=== PATIENT | female | born 1985 | race Caucasian/White ===

== ENCOUNTER 2017-07-23 22:07 | Inpatient (IN) ==
[2017-07-23] MEDS ORDERED: 0.9 % Sodium Chloride 1,000 ML IVC ONE (22:35)
--- NOTE | 2017-07-23 22:50 | Emergency Department Note ---
Disposition Clinical Impression: Pyelonephritis, Indwelling Bautista catheter present, S/P lumbar spinal fusion Disposition: Admitted As Inpatient Condition: Undetermined Time of Disposition: 23:39 General Adult HPI - General Chief complaint: ED Weakness Stated complaint: MULTIPLE COMPLAINTS Time Seen by Provider: 07/23/17 22:12 Source: patient Mode of arrival: private vehicle Limitations: no limitations Nursing Notes Reviewed: Yes Vital Signs Reviewed: Yes - History of Present Illness HPI Narrative: 32-year-old female with history of chronic back pain and subsequent weakness and numbness associated with it over the course of the past 2 months arrives to [facility] emergency department status post spinal fusion of L5-S1 by Dr. Thai Wagner in [facility]. The patient states the surgery occurred 5 days ago. She was recently discharged from the hospital status post surgery 2 days ago. The patient states that since then she has continued to experience chills, weakness. The patient states she has baseline numbness and tingling of her saddle region as well as left lower extremity. The patient states this is not new. The patient states as though she has been experiencing some suprapubic tenderness and pain as well as chills and generalized weakness. The patient denies any other complaints at this time that are new. Onset (ago): day(s) (2) Pain Severity: moderate Pain Scale: 7 Quality: aching Consistency: constant Improves with: nothing Worsens with: nothing Associated symptoms: Reports: fever/chills, malaise, nausea/vomiting, weakness Treatments Prior to Arrival: none - Related Data Home Medications Medication Instructions Recorded Confirmed Albuterol Sulfate [Ventolin Hfa] 2 puff IH Q4H PRN 09/12/16 07/24/17 Amitriptyline [Elavil] 25 mg PO HS 09/12/16 07/24/17 Cyanocobalamin (Vitamin B-12) 100 mcg PO DAILY 09/12/16 07/24/17 [Vitamin B-12] Dicyclomine [Bentyl] 10 mg PO QID 09/12/16 07/24/17 Ergocalciferol (VITAMIN D2) 50,000 unit PO 2XW MDD mon,wed 09/12/16 07/24/17 [Vitamin D2] Fexofenadine HCl 180 mg PO DAILY 09/12/16 07/24/17 Flunisolide [Aerospan] 1 - 2 puff IH BID 09/12/16 07/24/17 Folic Acid 1 mg PO DAILY 09/12/16 07/24/17 Gabapentin 800 mg PO TID 09/12/16 07/24/17 Ipratropium/Albuterol Neb [Duoneb] 3 ml IH Q6HR PRN 09/12/16 07/24/17 L. Acidophilus/Pectin, Placer 1 cap PO DAILY 09/12/16 07/24/17 [Acidophilus Probiotic Capsule] Medroxyprogesterone Acetate 150 mg IM Q3M 09/12/16 07/24/17 [Depo-Provera] Methocarbamol [Robaxin] 500 mg PO Q12H PRN 09/12/16 07/24/17 Previous Rx's Medication Instructions Recorded Docusate [Colace] 100 mg PO BID #30 capsule 09/12/16 OxyCODONE/APAP 5/325 [Percocet 1 each PO Q4HR PRN #30 tablet 09/12/16 5/325 MG] methylPREDNISolone [Medrol] 1 each PO DAILY #1 pack 05/31/17 Allergies Allergy/AdvReac Type Severity Reaction Status Date / Time No Known Allergies Allergy Verified 07/23/17 22:12 All systems ED: reviewed and negative except as stated. Constitutional: Reports: chills, weakness. Denies: fever Eyes: Denies: vision change ENT ED: Denies: dental pain, congestion, dysphagia Cardiovascular: Denies: chest pain, dyspnea on exertion Respiratory: Denies: cough, dyspnea Gastrointestinal: Reports: abdominal pain (Suprapubic), nausea, constipation. Denies: vomiting, diarrhea Genitourinary: Denies: urgency, dysuria Musculoskeletal: Reports: back pain, myalgia. Denies: neck pain Integumentary: Denies: rash Neurological: Reports: weakness, numbness, paresthesias, abnormal gait. Denies : headache, confusion, vertigo Past Medical History - Past Medical History Attestation: Yes The following information was validated with the patient. Source: patient Medical history: Reports: asthma, migraine Surgical history: Reports: appendectomy, , cholecystectomy Psychiatric history: Reports: no psych history - Social History Smoking Status: Current every day smoker Smokeless Tobacco Status: No Alcohol use: Reports: none Drug use: Reports: none Physical Exam - General Limitations: no limitations General appearance: alert, in no apparent distress - Head Head exam: atraumatic, normocephalic, normal inspection - Eye Eye exam: Present: normal appearance, PERRL, EOMI - ENT ENT exam: normal exam, normal oropharynx, mucous membranes moist - Neck Neck exam: Present: normal inspection, full ROM, trachea midline - Chest Chest inspection: Present: normal inspection, symmetric chest wall rise - Respiratory Respiratory exam: Present: normal lung sounds bilaterally - Cardiovascular Cardiovascular exam: Present: normal rhythm, tachycardia, normal heart sounds - Abdominal Exam Abdominal exam: Present: soft, Non-Tender. Absent: tenderness, distention, guarding, rebound, rigidity - Extremities Exam Extremities exam: Present: normal inspection, full ROM. Absent: tenderness, pedal edema - Back Exam Back exam: Present: full ROM, other (surgical incision intact without erythema, discharge.) - Neurological Exam Neurological exam: Present: alert, oriented X3, CN II-XII intact - Expanded Neurological Exam Patient oriented to: Present: person, place, time Speech: Present: fluid speech Cranial nerves: EOM function (II, III, IV, ): Normal, facial sensation (V): Normal, facial palsy (VII): Normal Cerebellar function: wide-based gait Motor strength - LUE: 4/5 Motor strength - RUE: 4/5 Motor strength - LLE: 3/5 Motor strength - RLE: 4/5 Sensory exam upper extremity: light touch: Normal Sensory exam lower extremity: light touch: Abnormal Left Coma Scale Eye Opening: Spontaneous Coma Scale Motor Response: Obeys Commands Coma Scale Verbal Response: Oriented Coma Scale Total: 15 - Skin Skin exam: Present: warm, dry, intact, normal color Course Vital Signs Temperature 97.4 F L 07/23/17 22:09 Pulse Rate 129 07/23/17 22:09 Respiratory Rate 16 07/23/17 22:09 Blood Pressure 128/83 07/23/17 22:09 O2 Sat by Pulse Oximetry 97 07/23/17 22:09 Temperature 98 F 07/24/17 04:04 Pulse Rate 109 07/24/17 04:04 Respiratory Rate 14 07/24/17 04:04 Blood Pressure 99/58 07/24/17 04:04 O2 Sat by Pulse Oximetry 99 07/24/17 04:04 Oxygen Delivery Oxygen Delivery Room Air Medical Decision Making - MDM Narrative Medical decision making narrative: Patient's workup here in the emergency department demonstrates findings consistent with a urinary tract infection. Patient is tachycardic and afebrile. Given the history of indwelling catheter is replaced combined with her UTI and likely pyelonephritis, we will admit the patient to hospitalist with IV antibiotics. Patient made aware and agrees with plan. I do not feel as though this is associated with her back and she is expressing no new back pain, no new numbness, tingling, no new weakness. The patient is resting comfortably with an incision site in her back that is well-appearing. Accepted by Dr. Foster. - Lab Data Lab results reviewed: Yes I reviewed the patient's lab results. Result diagrams: 07/24/17 04:47 07/23/17 22:43 Lab Results 07/23/17 07/23/17 07/23/17 Range/Units 22:43 22:43 22:43 WBC 11.3 H (4.3-11.1) K/mcL RBC 3.92 (3.82-4.97) M/mcL Hgb 12.5 (11.5-15.4) g/dL Hct 37.3 (35.3-44.9) % MCV 95.2 (83.0-100.0) fL MCH 31.9 (28.0-33.3) pg MCHC 33.5 (31.6-35.5) g/dL RDW 14.1 (11.5-14.5) % Plt Count 487 H (140-400) K/mcL MPV 8.7 L (9.4-12.4) fL Immature Gran % 0.4 (0-4) % Seg Neutrophils % 70.2 % Lymphocytes % 14.9 % Monocytes % 10.0 % Eosinophils % 4.0 % Basophils % 0.5 % Neutrophils # 7.9 (1.6-8.9) K/mcL Lymphocytes # 1.7 (0.6-4.6) K/mcL Monocytes # 1.1 (0.0-1.3) K/mcL Eosinophils # 0.5 (0.0-0.6) K/mcL Basophils # 0.1 (0.0-0.2) K/mcL Immature Plt Fraction 1.5 (1.1-6.1) % Sodium 141 (136-145) mEq/L Potassium 4.1 (3.5-4.5) mEq/L Chloride 109 (98-109) mEq/L Carbon Dioxide 22 (19-29) mEq/L BUN 6 L (7-20) mg/dL Creatinine 0.78 (0.57-1.11) mg/dL Est GFR ( Amer) > 60 (> 60) Est GFR (Non-Af Amer) > 60 (> 60) BUN/Creatinine Ratio 8 (6-26) Glucose 107 H (70-99) mg/dL Calculated Osmolality 290 (280-300) Lactic Acid 1.5 (0.5-2.2) mmol/L Calcium 9.3 (8.6-10.8) mg/dL Total Bilirubin 0.2 (0.2-1.2) mg/dL AST 19 (5-34) Units/L ALT 33 (0-55) Units/L Alkaline Phosphatase 70 (38-126) Units/L Serum Total Protein 7.2 (6.0-8.3) g/dL Albumin 2.9 L (3.5-5.0) g/dL Globulin 4.3 H (2.4-3.5) g/dL Albumin/Globulin Ratio 0.7 L (1.1-2.2) Urine Color (Yellow) Urine Clarity (Clear) Urine pH (5.0-8.0) pH Units Ur Specific [employer] [place] (1.010-1.025) Urine Protein (Neg-Trace) mg/dL Urine Glucose (UA) (Normal) mg/dL Urine Ketones (Negative) mg/dL Urine Blood (Negative) Urine Nitrite (Negative) Urine Bilirubin (Negative) Urine Urobilinogen (Normal) mg/dL Ur Leukocyte Esterase (Negative) Urine Microscopic RBC (0-3) per hpf Urine Microscopic WBC (0-3) per hpf Ur Squamous Epith Cells (None-Few) per lpf Urine Bacteria (None-Few) per hpf Hyaline Casts (None-Few) per lpf Ur Culture Indicated? (NO) Urine Test (Negative) 07/23/17 07/23/17 Range/Units 22:55 22:55 WBC (4.3-11.1) K/mcL RBC (3.82-4.97) M/mcL Hgb (11.5-15.4) g/dL Hct (35.3-44.9) % MCV (83.0-100.0) fL MCH (28.0-33.3) pg MCHC (31.6-35.5) g/dL RDW (11.5-14.5) % Plt Count (140-400) K/mcL MPV (9.4-12.4) fL Immature Gran % (0-4) % Seg Neutrophils % % Lymphocytes % % Monocytes % % Eosinophils % % Basophils % % Neutrophils # (1.6-8.9) K/mcL Lymphocytes # (0.6-4.6) K/mcL Monocytes # (0.0-1.3) K/mcL Eosinophils # (0.0-0.6) K/mcL Basophils # (0.0-0.2) K/mcL Immature Plt Fraction (1.1-6.1) % Sodium (136-145) mEq/L Potassium (3.5-4.5) mEq/L Chloride (98-109) mEq/L Carbon Dioxide (19-29) mEq/L BUN (7-20) mg/dL Creatinine (0.57-1.11) mg/dL Est GFR ( Amer) (> 60) Est GFR (Non-Af Amer) (> 60) BUN/Creatinine Ratio (6-26) Glucose (70-99) mg/dL Calculated Osmolality (280-300) Lactic Acid (0.5-2.2) mmol/L Calcium (8.6-10.8) mg/dL Total Bilirubin (0.2-1.2) mg/dL AST (5-34) Units/L ALT (0-55) Units/L Alkaline Phosphatase (38-126) Units/L Serum Total Protein (6.0-8.3) g/dL Albumin (3.5-5.0) g/dL Globulin (2.4-3.5) g/dL Albumin/Globulin Ratio (1.1-2.2) Urine Color Yellow (Yellow) Urine Clarity Cloudy A (Clear) Urine pH 6.5 (5.0-8.0) pH Units Ur Specific [employer] [place] 1.011 (1.010-1.025) Urine Protein Trace (Neg-Trace) mg/dL Urine Glucose (UA) Normal (Normal) mg/dL Urine Ketones Negative (Negative) mg/dL Urine Blood Small H (Negative) Urine Nitrite Positive A (Negative) Urine Bilirubin Negative (Negative) Urine Urobilinogen Normal (Normal) mg/dL Ur Leukocyte Esterase Large H (Negative) Urine Microscopic RBC 5-15 H (0-3) per hpf Urine Microscopic WBC 30-50 H (0-3) per hpf Ur Squamous Epith Cells Moderate H (None-Few) per lpf Urine Bacteria Many H (None-Few) per hpf Hyaline Casts None Seen (None-Few) per lpf Ur Culture Indicated? YES A (NO) Urine Test Negative (Negative) Attestation Statement - Attestation Attestation: I examined this patient and my medical decision-making was reviewed with the Resident Physician. I agree with the documented findings, disposition and treatment plan as described except to the extent set forth below. Findings consistent with urinary tract infection. Replaced Bautista, start ceftriaxone. Given indwelling Bautista catheter and urinary retention will admit for further evaluation.
[2017-07-23 22:51] LABS: Basophils # 0.1 K/mcL (0.0-0.2); Basophils % 0.5 %; Eosinophils # 0.5 K/mcL (0.0-0.6); Hematocrit 37.3 % (35.3-44.9); Hemoglobin 12.5 g/dL (11.5-15.4); Immature Granulocytes % 0.4 % (0-4); Immature Platelets 1.5 % (1.1-6.1); Lymphocytes # 1.7 K/mcL (0.6-4.6); Lymphocytes % 14.9 %; Mean Corpuscular HGB Conc 33.5 g/dL (31.6-35.5); Mean Corpuscular Hemoglobin 31.9 pg (28.0-33.3); Mean Corpuscular Volume 95.2 fL (83.0-100.0); Mean Platelet Volume 8.7 fL (9.4-12.4); Monocytes # 1.1 K/mcL (0.0-1.3); Neutrophils # 7.9 K/mcL (1.6-8.9); Platelet Count 487 K/mcL (140-400); Red Blood Count 3.92 M/mcL (3.82-4.97); Red Cell Distribution Width 14.1 % (11.5-14.5); Segmented Neutrophils % 70.2 %
[2017-07-23 23:04] LABS: Alanine Aminotransferase 33 Units/L (0-55); Albumin 2.9 g/dL (3.5-5.0); Albumin/Globulin Ratio 0.7 (1.1-2.2); Alkaline Phosphatase 70 Units/L (38-126); Aspartate Amino Transferase 19 Units/L (5-34); BUN/Creatinine Ratio 8 (6-26); Bilirubin,Total 0.2 mg/dL (0.2-1.2); Blood Urea Nitrogen 6 mg/dL (7-20); Calcium 9.3 mg/dL (8.6-10.8); Carbon Dioxide 22 mEq/L (19-29); Chloride 109 mEq/L (98-109); Globulin 4.3 g/dL (2.4-3.5); Glucose 107 mg/dL (70-99); Osmolality,Calculated 290 (280-300); Potassium 4.1 mEq/L (3.5-4.5); Sodium 141 mEq/L (136-145); Total Protein 7.2 g/dL (6.0-8.3); eGFR For African Americans > 60 (> 60); eGFR For Non-African Americans > 60 (> 60)
[2017-07-23 23:04] LABS: Bilirubin,Urine Negative (Negative); Blood,Urine Small (Negative); Clarity,Urine Cloudy (Clear); Color,Urine Yellow (Yellow); Glucose,Urine (UA) Normal (Normal); Ketones,Urine Negative (Negative); Leukocyte Esterase,Urine Large (Negative); Nitrite,Urine Positive (Negative); PH,Urine 6.5 pH Units (5.0-8.0); Protein,Urine Trace mg/dL (Neg-Trace); Specific Gravity,Urine 1.011 (1.010-1.025); Urobilinogen,Urine Normal (Normal)
[2017-07-23 23:06] LABS: Bacteria,Urine Many per hpf (None-Few); Hyaline Casts,Urine None Seen per lpf (None-Few); Squamous Epithelial Cell,Urine Moderate per lpf (None-Few); WBC,Urine 30-50 per hpf (0-3)
[2017-07-23] MEDS ORDERED: Ondansetron 4 MG/2 ML VIAL IVP ONE (23:29)
[2017-07-23] MEDS ORDERED: *HR* FentaNYL (PF) 100 MCG/2 ML VIAL IVP ONE (23:29)
[2017-07-23] MEDS ORDERED: cefTRIAXone 1,000 MG in Water for inj. (sterile) 10 ML IVP ONE (23:30)
[2017-07-24] MEDS ORDERED: Ondansetron 4 MG/2 ML VIAL IVP ONE (00:44)
[2017-07-24] MEDS ORDERED: Ondansetron 4 MG/2 ML VIAL ONE (00:52)
[2017-07-24] MEDS ORDERED: *HR* Promethazine 25 MG/ML VIAL IV ONE (01:44)
[2017-07-24] MEDS ORDERED: *HR* Promethazine 25 MG/ML VIAL ONE (01:46)
[2017-07-24] MEDS ORDERED: Ondansetron 4 MG/2 ML VIAL IVP PRN (01:57)
[2017-07-24] MEDS ORDERED: Naloxone 0.4 MG/ML INJ IVP PRN (01:57)
[2017-07-24] MEDS ORDERED: Methocarbamol 500 MG TABLET PO PRN (02:00)
[2017-07-24] MEDS ORDERED: *HR* Promethazine 25 MG/ML VIAL IVP PRN (02:00)
[2017-07-24] MEDS ORDERED: Ipratropium/Albuterol Neb 3 ML IH PRN (02:00)
--- NOTE | 2017-07-24 02:11 | Internal Med History&Physical ---
Date of Encounter: 07/24/17 Time of Encounter: 01:45 Assessment and Plan (1) Pyelonephritis Current visit: Yes Status: Acute Will continue Ceftriaxone IV f/u urine cultures caraballo care pain control IV fluids n/v likely secondary to underlying infection-continue supportive care zofran prn n/v phenergan prn nausea refractory to zofran (2) Lumbar radiculitis Current visit: No Status: Chronic s/p spinal fusion surgery continue home medications (3) Indwelling Caraballo catheter present Current visit: Yes Status: Chronic (4) S/P lumbar spinal fusion Current visit: Yes Status: Chronic (5) Asthma Current visit: Yes Status: Chronic not in exacerbation continue home meds Qualifiers: Asthma severity: unspecified severity Asthma persistence: unspecified Asthma complication type: unspecified Qualified Code(s): J45.909 - Unspecified asthma, uncomplicated (6) DVT prophylaxis Current visit: Yes Status: Acute heparin SQ Internal Medicine - H&P: HPI Chief complaint: nausea, vomiting, back pain Admitted From: Home Plans for Post Hospital Care: Home History of present illness: Ms. Ahumada is a 32 year old female with PMH of asthma, chronic low back pain s/p spinal fusion surgery 5 days ago, indwelling caraballo catheter who presents to the ER for persistent nausea, vomiting, and worsening back pain. After initial work up in the ER, she was found to have a UTI and was started on treatment with empiric abx. She received IV fentanyl and Zofran which improved her presenting symptoms. During my evaluation, pt reports of persistent nausea and lower back pain that abruptly started on monday morning. Denies any fevers or chills. Reports of being discharged from the hospital on Monday07/21/17. Also reports of having chronic history of sinus tachycardia. No other complains at this time. Past Med Surg Social Fam HX - Past Medical History Medical history: asthma, migraine Psychiatric history: no psych history - Past Surgical History Surgical History: appendectomy, , cholecystectomy - Social History Smoking Status: Current every day smoker Smokeless Tobacco Status: No Alcohol use: none Drug use: none Internal Medicine - H&P: Meds Albuterol Sulfate [Ventolin Hfa] 2 puff IH Q4H PRN 09/12/16 [History] Amitriptyline [Elavil] 25 mg PO HS 09/12/16 [History] Cyanocobalamin (Vitamin B-12) [Vitamin B-12] 100 mcg PO DAILY 09/12/16 [History] Dicyclomine [Bentyl] 10 mg PO QID 09/12/16 [History] Docusate [Colace] 100 mg PO BID #30 capsule 09/12/16 [Rx] Ergocalciferol (VITAMIN D2) [Vitamin D2] 50,000 unit PO 2XW MDD mon,mon [History] Fexofenadine HCl 180 mg PO DAILY 09/12/16 [History] Flunisolide [Aerospan] 1 - 2 puff IH BID 09/12/16 [History] Folic Acid 1 mg PO DAILY 09/12/16 [History] Gabapentin 800 mg PO TID 09/12/16 [History] Ipratropium/Albuterol Neb [Duoneb] 3 ml IH Q6HR PRN 09/12/16 [History] L. Acidophilus/Pectin, [place] [Acidophilus Probiotic Capsule] 1 cap PO DAILY 05/21 [History] Medroxyprogesterone Acetate [Depo-Provera] 150 mg IM Q3M 09/12/16 [History] Methocarbamol [Robaxin] 500 mg PO Q12H PRN 09/12/16 [History] OxyCODONE/APAP 5/325 [Percocet 5/325 MG] 1 each PO Q4HR PRN #30 tablet 09/12/16 [Rx] methylPREDNISolone [Medrol] 1 each PO DAILY #1 pack 05/31/17 [Rx] 3 Allergy/AdvReac Type Severity Reaction Status Date / Time No Known Allergies Allergy Verified 07/23/17 22:12 All Systems PM: A 10-system review of systems was performed and is negative for pertinent findings except as documented above in the HPI. - Constitutional Constitutional: as per HPI - Constitutional Vitals: Temp Pulse Resp BP Pulse Ox 97.4 F L 112 18 129/73 98 07/23/17 22:09 07/23/17 23:39 07/24/17 01:03 07/24/17 01:03 07/23/17 23:39 General appearance: Present: mild distress (generalized pain), A&O X 3, obese, answers questions appropriately - Head Head exam: Present: atraumatic, normocephalic - Eye Eye exam: Present: conjuntiva pink, sclera anicteric - Respiratory Respiratory exam: Present: CTAB. Absent: accessory muscle use, rales, rhonchi, wheezes - Cardiovascular Cardiovascular exam: Present: +S1, +S2, tachycardia - GI/Abdominal GI/Abdominal exam: Present: normal bowel sounds, soft, no peritoneal signs. Absent: distended, tenderness - Additional comments: indwelling caraballo catheter - Extremities Exam Extremities exam: Present: warm, radial pulses palpable and symmetrical. Absent : calf tenderness, pedal edema - Neurological Exam Neurological exam: Present: alert, oriented X3 - Psychiatric Psychiatric exam: Present: normal affect, normal mood Internal Med - H&P Results - Labs CBC & Chem 7: 07/23/17 22:43 07/23/17 22:43
[2017-07-24] MEDS: *HR* Morphine 2 MG/ML SYRINGE IVP PRN ×3 (02:32→22:52)
[2017-07-24] MEDS: 0.9 % Sodium Chloride 1,000 ML IVC SCH ×2 (02:32→22:32)
[2017-07-24] MEDS: *HR* Heparin 5,000 UNIT/ML VIAL SQ SCH ×3 (04:34→20:28)
[2017-07-24 04:59] LABS: Basophils % 0.5 %; Eosinophils # 0.3 K/mcL (0.0-0.6); Eosinophils % 3.8 %; Hematocrit 35.2 % (35.3-44.9); Hemoglobin 11.5 g/dL (11.5-15.4); Immature Granulocytes % 0.2 % (0-4); Lymphocytes # 1.7 K/mcL (0.6-4.6); Lymphocytes % 20.7 %; Mean Corpuscular HGB Conc 32.7 g/dL (31.6-35.5); Mean Corpuscular Hemoglobin 30.8 pg (28.0-33.3); Mean Corpuscular Volume 94.4 fL (83.0-100.0); Mean Platelet Volume 8.8 fL (9.4-12.4); Monocytes # 0.7 K/mcL (0.0-1.3); Monocytes % 8.4 %; Neutrophils # 5.4 K/mcL (1.6-8.9); Platelet Count 407 K/mcL (140-400); Red Blood Count 3.73 M/mcL (3.82-4.97); Red Cell Distribution Width 13.9 % (11.5-14.5); Segmented Neutrophils % 66.4 %
[2017-07-24 05:12] LABS: BUN/Creatinine Ratio 10 (6-26); Blood Urea Nitrogen 7 mg/dL (7-20); Calcium 8.7 mg/dL (8.6-10.8); Carbon Dioxide 23 mEq/L (19-29); Chloride 110 mEq/L (98-109); Glucose 99 mg/dL (70-99); Magnesium 2.4 mg/dL (1.6-2.6); Osmolality,Calculated 290 (280-300); Phosphorous 3.7 mg/dL (2.3-4.7); Potassium 3.8 mEq/L (3.5-4.5); Sodium 141 mEq/L (136-145); eGFR For African Americans > 60 (> 60); eGFR For Non-African Americans > 60 (> 60)
[2017-07-24] MEDS: *HR* HYDROcodone/Acet 5/325 mg TABLET PO PRN ×2 (08:49→17:53)
[2017-07-24] MEDS: Folic Acid 1 MG TABLET PO SCH (08:49)
[2017-07-24] MEDS: Cyanocobalamin (B-12) 1,000 MCG TABLET PO SCH (08:49)
[2017-07-24] MEDS: Gabapentin 400 MG CAPSULE PO SCH ×3 (08:49→20:28)
[2017-07-24] MEDS: Lactobacillus 1 EACH CAP.SPRINK PO SCH (08:49)
[2017-07-24] MEDS: Loratadine 10 MG TABLET PO SCH (08:49)
[2017-07-24] MEDS ORDERED: methylPREDNISolone 4 MG TABLET PO SCH (09:00)
[2017-07-24] MEDS ORDERED: Bisacodyl 10 MG RECTAL SUPPOSITORY RC ONE (13:50)
[2017-07-25 03:52] LABS: Hematocrit 34.3 % (35.3-44.9); Hemoglobin 11.2 g/dL (11.5-15.4); Mean Corpuscular HGB Conc 32.7 g/dL (31.6-35.5); Mean Platelet Volume 8.9 fL (9.4-12.4); Platelet Count 419 K/mcL (140-400); Red Blood Count 3.61 M/mcL (3.82-4.97); Red Cell Distribution Width 13.8 % (11.5-14.5)
[2017-07-25 04:03] LABS: BUN/Creatinine Ratio 12 (6-26); Blood Urea Nitrogen 9 mg/dL (7-20); Calcium 8.7 mg/dL (8.6-10.8); Carbon Dioxide 24 mEq/L (19-29); Chloride 107 mEq/L (98-109); Glucose 85 mg/dL (70-99); Osmolality,Calculated 282 (280-300); Potassium 3.6 mEq/L (3.5-4.5); Sodium 137 mEq/L (136-145); eGFR For African Americans > 60 (> 60); eGFR For Non-African Americans > 60 (> 60)
[2017-07-25] MEDS: *HR* Heparin 5,000 UNIT/ML VIAL SQ SCH (05:21)
[2017-07-25 07:31] VITALS: BP 98/62
[2017-07-25] MEDS: Lactobacillus 1 EACH CAP.SPRINK PO SCH (08:06)
[2017-07-25] MEDS: Gabapentin 400 MG CAPSULE PO SCH (08:06)
[2017-07-25] MEDS: Folic Acid 1 MG TABLET PO SCH (08:06)
[2017-07-25] MEDS: Loratadine 10 MG TABLET PO SCH (08:06)
[2017-07-25] MEDS: Cyanocobalamin (B-12) 1,000 MCG TABLET PO SCH (08:06)
[2017-07-25] MEDS ORDERED: cefTRIAXone 1,000 MG in Water for inj. (sterile) 10 ML IVP SCH (09:00)
--- NOTE | 2017-07-25 10:47 | Discharge Summary ---
Date of Encounter: 07/25/17 Time of Encounter: 10:20 - Discharge Diagnosis (1) S/P lumbar spinal fusion Priority: Primary Status: Chronic Comments: Yue Ahumada is a 32 female with PMH lumbar stenosis s/p recent fusion, urinary retention depression and GERD who presented to [facility] on 07/24/2017 with complaints of nausea vomiting and worsening back pain. She was found to have pyelonephritis was admitted for IV ATB. She was discharged home on 07/25/2017 in stable condition with outpatient follow-up. 1. Pyelonephritis: Symptomatic with nausea vomiting and flank pain. UA grossly indicative of UTI. IV ceftriaxone started on admission. Urine culture with gram-negative rods, no sensitivity. Obtained 07/21/2017 urine culture from [facility] which showed Escherichia coli, pansensitive. Patient clinically is subjectively improved. Discharged home on a 2 week course of Cipro. Follow-up with outpatient Urology as previously planned 2. Lumbar stenosis: Per history. Symptomatic with saddle anesthesia and bladder incontinence. Follows with Dr. Shah (Neurosurgery at [facility]). S/p L5- S1 posterior lumbar interbody fusion on 07/20/2017. Still with lower abdominal paresthesia which patient reports she was advised would improve over time. Continue TLSO brace when out of bed. Follow-up with neurosurgery as previously planned. 3. Urinary retention: Had urinary incontinence preop and urinary retention with PVRs greater than 400 postoperatively after Bautista was removed. Bautista catheter replaced on admission. We catheter in place until she follows up with urology. Treating pyelonephritis as noted above. 4. Constipation: Patient reports no BM for over 3 weeks. Suspect secondary to saddle anesthesia repeating sensation to defecate combined with limited mobility and pain medicine. Received Dulcolax rectal suppository on 07/24/17 with satisfactory BM. Strongly encouraged adequate H2O intake, ambulation. Continue aggressive bowel regimen. Patient may benefit from every other day rectal stimulation. 5. Acute blood loss anemia: Hgb 11.2 secondary to expected surgical losses. [facility] records reviewed and Hgb 11.2 at discharge; stable. No active bleeding. Recommend repeat CBC with PCP in 4-6 weeks. 6. Depression: With anxiety. Mood appears stable. Continue home medication regimen. (2) Pyelonephritis Priority: Primary Status: Acute (3) Urinary retention Priority: Primary Status: Acute - Discharge Medications Prescriptions: Bisacodyl [Dulcolax] 10 mg RC DAILY #30 supp.rect Ciprofloxacin HCl [Cipro] 500 mg PO BID #14 tablet Polyethylene Glycol 3350 [MiraLAX] 17 gm PO DAILY #30 powd.pack Sennosides/Docusate Sodium [Senna-Docusate Sodium Tablet] 1 each PO BID #60 tablet Home Medications: Albuterol Sulfate [Ventolin Hfa] 2 puff IH Q4H PRN 09/12/16 [History] Amitriptyline [Elavil] 25 mg PO HS 09/12/16 [History] Cyanocobalamin (Vitamin B-12) [Vitamin B-12] 100 mcg PO DAILY 09/12/16 [History] Dicyclomine [Bentyl] 10 mg PO QID 09/12/16 [History] Docusate [Colace] 100 mg PO BID #30 capsule 09/12/16 [Rx] Ergocalciferol (VITAMIN D2) [Vitamin D2] 50,000 unit PO 2XW MDD mon,mon [History] Fexofenadine HCl 180 mg PO DAILY 09/12/16 [History] Folic Acid 1 mg PO DAILY 09/12/16 [History] Gabapentin 800 mg PO TID 09/12/16 [History] Ipratropium/Albuterol Neb [Duoneb] 3 ml IH Q6HR PRN 09/12/16 [History] L. Acidophilus/Pectin, [place] [Acidophilus Probiotic Capsule] 1 cap PO DAILY 05/21 [History] Medroxyprogesterone Acetate [Depo-Provera] 150 mg IM Q3M 09/12/16 [History] Methocarbamol [Robaxin] 500 mg PO Q12H PRN 09/12/16 [History] OxyCODONE/APAP 5/325 [Percocet 5/325 MG] 1 each PO Q4HR PRN #30 tablet 09/12/16 [Rx] Bisacodyl [Dulcolax] 10 mg RC DAILY #30 supp.rect 07/25/17 [Rx] Ciprofloxacin HCl [Cipro] 500 mg PO BID #14 tablet 07/25/17 [Rx] Polyethylene Glycol 3350 [MiraLAX] 17 gm PO DAILY #30 powd.pack 11/21/17 [Rx] Sennosides/Docusate Sodium [Senna-Docusate Sodium Tablet] 1 each PO BID #60 tablet 07/25/17 [Rx] Allergies/Adverse Reactions: 3 Allergy/AdvReac Type Severity Reaction Status Date / Time No Known Allergies Allergy Verified 07/23/17 22:12 Date of admission: 07/24/17 17:30 Primary care physician: Elie Santillan MD Discharging clinician: Angie Fuentes Anticipated date of discharge: 07/25/17 - Patient Status Disposition: Home, Self-Care Condition: Good Functional capacity at discharge: independent ambulation Overall status at discharge: patient is progressing back to baseline - Discharge Instructions Instructions: Acute Pyelonephritis (DC), Chronic Urinary Retention in Women (DC ), Bautista Catheter Placement and Care (DC), Constipation (DC), Lumbar Spinal Stenosis (DC) Follow Up With: Elie Santillan MD [Primary Care Provider] - Additional Instructions: Please follow-up with your neurosurgeon as previously planned. Please follow-up with your urologist as previously planned. Please call your PCP in 24 hours or the next business day to schedule follow-up appointment. - Diet and Activity Activity: increase activity as tolerated Diet: advance to your usual diet Interval History: Seen bedside. Patient is new to me, information obtained from chart review, patient report an outside hospital records. Patient says lower back pain with radiation to legs and abdominal paresthesia is unchanged since discharge from [place]. Says she feels much better and she would like to discharge home today. Says she had a satisfactory bowel movement yesterday. Discussed with her the importance of increasing ambulation, adequate water intake and aggressive bowel regimen. Advised her she may benefit from an every other day rectal stimulation. She has outpatient follow-up scheduled with her neurosurgery and neurology at [place]. She has no complaints other than as noted above and wanting to home. No fevers or chills. Hospital course: Ms. Ahumada is a 32 year old female - Time Spent with Patient Total time spent providing and/or coordinating discharge services: Greater than 30 minutes (33 minutes spent on discharge) - Constitutional Vitals: Temp Pulse Resp BP Pulse Ox 98.2 F 91 18 98/62 96 07/25/17 07:30 07/25/17 07:30 07/25/17 07:30 07/25/17 07:30 07/25/17 08:00 General appearance: Present: A&O X 3, obese, answers questions appropriately - Head Head exam: Present: atraumatic, normocephalic - Eye Eye exam: Present: PERRL, conjuntiva pink, sclera anicteric Pupils: Present: PERRL - Neck Neck exam general surgery: Present: supple, trachea midline. Absent: lymphadenopathy - Respiratory Respiratory exam: Present: CTAB. Absent: accessory muscle use, rales, rhonchi, wheezes - Cardiovascular Cardiovascular exam: Present: RRR, +S1, +S2. Absent: diastolic murmur, gallop, rubs, systolic murmur - GI/Abdominal GI/Abdominal exam: Present: normal bowel sounds, soft, no peritoneal signs. Absent: distended, tenderness - Additional comments: Bautista catheter present. - Extremities Exam Extremities exam: Present: warm, radial pulses palpable and symmetrical. Absent : calf tenderness, cyanotic, pedal edema - Back Exam Additional comments: Back incision with fransisca clean, dry, intact. No evidence of infection. - Neurological Exam Neurological exam: Present: CN II-XII intact, oriented X3, no focal deficits. Absent: pronater drift, facial droop, speech deficit - Skin Skin exam: Present: dry, intact
[2017-07-25] MEDS: *HR* HYDROcodone/Acet 5/325 mg TABLET PO PRN (11:41)
== END 2017-07-25 12:25 | disposition home or self-care (01) | DRG 463 ==
LOC: EMEROO 22:07 → 3BNU 22:07
PROVIDERS: ADMIT Internal Medicine; ATTEND Registered Nurse